=== PATIENT | female | born 1980 | race Caucasian/White ===

== ENCOUNTER → 2017-08-05 | Outpatient (CLI) | payer OTHER ==
[~2017-08-05] MED LIST: ESTR1TAB27 PO; NAPR-1071 PO; NAPR-243 PO; PROP10TA8 PO; TRM50T PO; flexeril PO
--- NOTE | 2017-08-05 15:09 | Diagnostic Imaging Report ---
INDICATION: Left knee pain. TIME OF EXAM: 3:13 p.m. FINDINGS: Three views of the left knee demonstrate normal alignment. The joint spaces are well maintained. The articular surfaces are smooth. No fracture, dislocation, or effusion is identified. IMPRESSION: No acute bony abnormality is detected. Dictated by: Dictated on workstation # [id number]
--- NOTE | 2017-08-05 15:10 | Diagnostic Imaging Report ---
INDICATION: Left foot pain. TIME OF EXAM: 3:11 p.m. FINDINGS: The metatarsals are intact. No periosteal reaction or stress reaction is identified. The phalanges are intact. Midfoot and hindfoot are unremarkable. There is a small posterior calcaneal spur. There is also a tiny plantar calcaneal spur. IMPRESSION: No acute bony abnormality is detected. Dictated by: Dictated on workstation # [id number]
== END ==
LOC: RAD 14:16
PROVIDERS: ATTEND Family Medicine
DX: M79.672 Pain in left foot (principal); M25.562 Pain in left knee
CPT/HCPCS: 73562; 73630

== ENCOUNTER → 2017-11-13 | Outpatient (CLI) | payer OTHER ==
--- NOTE | 2017-11-13 10:15 | Diagnostic Imaging Report ---
INDICATION: Pelvic pain and dysuria. Patient has had prior hysterectomy and left oophorectomy in 2004. PROCEDURE: US Non-ob pelvis comp/trans. TECHNIQUE: Multiple realtime grayscale images were obtained of the pelvis in various projections endovaginally. Transabdominal imaging was also performed. The uterus and left ovary are surgically absent. The right ovary measures 2.7 x 2.1 x 2.3 cm. There is a 15 mm cyst involving the right ovary. There is blood flow to the right ovary. No other adnexal mass or free fluid is seen. Visualized urinary bladder is unremarkable. Impression: Status post hysterectomy and left oophorectomy. There is a 15 mm cyst involving the right ovary. No other abnormality is seen. Dictated by: Dictated on workstation # [id number]
== END ==
LOC: RAD 08:23
PROVIDERS: ATTEND Nurse Practitioner
DX: N83.201 Unspecified ovarian cyst, right side (principal); Z90.721 Acquired absence of ovaries, unilateral; Z90.710 Acquired absence of both cervix and uterus
CPT/HCPCS: 76830; 76856

== ENCOUNTER → 2019-12-14 | Outpatient (CLI) | payer OTHER ==
--- NOTE | 2019-12-14 13:37 | Diagnostic Imaging Report ---
INDICATION: Routine screening. Comparison is made with prior right mammogram from 04/02/2015. No prior left mammogram is available for comparison. 2-D and 3-D bilateral screening mammography was performed with CAD. Both breasts are heterogeneously dense, limiting the sensitivity of mammography. No dominant mass or malignant-appearing microcalcifications are seen. Axillae are unremarkable. IMPRESSION: BI-RADS Category 1 No mammographic features suspicious for malignancy are identified. ACR BI-RADS Category 1: Negative. Result letter will be mailed to the patient. Note: At least 10% of breast cancer is not imaged by mammography. Dictated by: Dictated on workstation # [id number]
== END ==
LOC: RAD 07:40
PROVIDERS: ATTEND Nurse Practitioner Family
DX: Z12.31 Encounter for screening mammogram for malignant neoplasm of breast (principal)
CPT/HCPCS: 77063; 77067

== ENCOUNTER → 2021-03-26 | Outpatient (CLI) | payer OTHER ==
--- NOTE | 2021-03-26 15:21 | Diagnostic Imaging Report ---
INDICATION: Routine screening. Comparison is made with prior mammogram 12/14/2019. 2-D and 3-D bilateral screening mammography was performed with CAD. Both breasts are heterogeneously dense, limiting the sensitivity of mammography. No mass or malignant-appearing microcalcifications are seen. Axillae are unremarkable. IMPRESSION: No mammographic features suspicious for malignancy are identified. BI-RADS Category 1 ACR BI-RADS Category 1: Negative. Result letter will be mailed to the patient. Note: At least 10% of breast cancer is not imaged by mammography. Dictated by: Dictated on workstation # [id number]
== END ==
LOC: RAD 12:45
PROVIDERS: ATTEND Nurse Practitioner Family
DX: Z12.31 Encounter for screening mammogram for malignant neoplasm of breast (principal)
CPT/HCPCS: 77063; 77067

== ENCOUNTER → 2022-04-22 | Outpatient (CLI) | payer OTHER ==
--- NOTE | 2022-04-22 14:12 | Diagnostic Imaging Report ---
INDICATION: Routine screening. COMPARISON: 03/26/2021 and 12/14/2019. TECHNIQUE: 2D and 3D bilateral screening mammography was performed with CAD. FINDINGS: Both breasts are heterogeneously dense, limiting the sensitivity of mammography. The parenchymal pattern is stable. No mass or malignant-appearing microcalcifications are seen. The axillae are unremarkable. IMPRESSION: No mammographic features suspicious for malignancy are identified. ACR BI-RADS Category 1: Negative. Result letter will be mailed to the patient. Note: At least 10% of breast cancer is not imaged by mammography. Dictated by: Dictated on workstation # [id number]
== END ==
LOC: RAD 07:10
PROVIDERS: ATTEND Physician Assistant
DX: Z12.31 Encounter for screening mammogram for malignant neoplasm of breast (principal)
CPT/HCPCS: 77063; 77067